=== PATIENT | female | born 1980 | race Caucasian/White ===

== ENCOUNTER 2017-08-16 15:22 | Emergency (ER) | payer MEDICAID ==
[~2017-08-16] VITALS: Ht 160 cm; Wt 63.5 kg
[~2017-08-16 15:22] MED LIST: AUGMENTIN 875875 MG; PREDNISONE 20 M20 M1 PO; PRILOSEC20 MG PO; SKELAXIN 800 M800 M1 PO; VENTOLIN HFA 1818 GM INH; ZANTAC 150MG T150 MG PO
[2017-08-16] MEDS ORDERED: CELEXA10 MG PO (15:44)
[2017-08-16 16:14] LABS: URINE BILIRUBIN NEGATIVE (Negative); URINE BLOOD NEGATIVE (Negative); URINE CLARITY CLEAR; URINE COLOR YELLOW; URINE GLUCOSE-RANDOM NEGATIVE (Negative); URINE KETONES NEGATIVE (Negative); URINE LEUKOCYTES-REFLEX TRACE (Negative); URINE PROTEIN NEGATIVE (Negative); URINE SPECIFIC GRAVITY 1.025 (1.005-1.030); URINE UROBILINOGEN 0.2 E.U./dl (0.2-1.0)
[2017-08-16 16:15] LABS: URINE NITRITE-REFLEX POSITIVE (Negative)
[2017-08-16 16:24] LABS: SQUAMOUS >10 Many /LPF (0-3)
[2017-08-16 16:25] LABS: MUCUS >6 Heavy strn/LPF (None Seen); URINE WBC-REFLEX 6-15 Few /HPF (0-5); WBC CLUMPS Few (None Seen)
[2017-08-16 16:26] LABS: CASTS None Seen /LPF (None Seen); CRYSTALS None Seen /LPF (None Seen); URINE RBC 0-2 Rare /HPF (0-2)
[2017-08-16 16:51] LABS: ABSOLUTE EOSINOPHILS 0.3 thou/uL (0.0-0.7); ABSOLUTE LYMPHOCYTES 1.6 thou/uL (0.8-5.3); ABSOLUTE MONOCYTES 0.9 thou/uL (0.0-1.2); ABSOLUTE NEUTROPHILS 9.9 thou/uL (1.6-8.1); BASOPHILS 0.3 %; EOSINOPHILS 2.6 %; HEMATOCRIT 40.9 % (37.0-47.0); HEMOGLOBIN 13.8 gm/dL (12.0-15.0); LYMPHOCYTES 12.7 %; MCH 30.3 pg (26.0-34.0); MCHC 33.7 g/dL (28.0-37.0); MCV 90.1 fL (80.0-100.0); MONOCYTES 7.4 %; MPV 8.4 fl. (7.2-11.1); NUCLEATED RBCS 0 /100WBC; PLATELET COUNT* 304 thou/uL (150-400); RBC 4.54 mil/uL (4.20-5.00); RDW-CV 13.1 % (10.5-14.5); WBC 12.8 thou/uL (4.0-11.0)
[2017-08-16 16:55] LABS: ANION GAP 9 mmol/L (7-16); BUN 11 mg/dL (7-18); CALCIUM 9.2 mg/dL (8.5-10.1); CHLORIDE 99 mmol/L (98-107); CO2 29 mmol/L (21-32); CREATININE 1.2 mg/dL (0.6-1.3); GLUCOSE 95 mg/dL (70-99); POTASSIUM 3.7 mmol/L (3.5-5.1); SODIUM 137 mmol/L (136-145)
[2017-08-16 17:04] LABS: ALBUMIN 3.7 g/dL (3.4-5.0); ALKALINE PHOSPHATASE 149 U/L (46-116); LIPASE 98 U/L (73-393); SGOT 13 U/L (15-37); SGPT 25 U/L (30-65); TOTAL BILIRUBIN 0.5 mg/dL (<0.1-1.0); TOTAL PROTEIN 8.1 g/dL (6.4-8.2); TROPONIN-I LEVEL <0.06 ng/mL (<0.06)
[2017-08-16] MEDS ORDERED: KEFLEX500 M1 PO (18:28)
[2017-08-16] MEDS ORDERED: ZOFRAN ODT4 MG PO (18:28)
[2017-08-16] MEDS ORDERED: NORCO 5-325 TA1 EACH PO (18:28)
[2017-08-16 18:43] VITALS: BP 105/73
--- NOTE | 2017-08-17 13:00 | EKG ---
[place] [address] ELECTROCARDIOGRAM REPORT Name: JOSEKELLIJIM STARKEYE Room: [facility]#: [id number] Admission: 08/16/17 Attend Phys: Discharge: 08/16/17 Date of : 76 Report #: [id number] THIS REPORT FOR: //name// [facility] ED Test Date: 2017-08-16 Test Time: 16:57:09 Pat Name: KELLI GARCIA Department: Room: Gender: F Pattern Puncher: Matias BUTLER : 1980 Requested By: Noe Yousif Order Number: [id number] MD: Raheem Jaimes Measurements Intervals [place] Rate: 84 P: 33 NM: 145 QRS: 49 QRSD: 91 T: 39 QT: 359 QTc: 425 Interpretive Statements Sinus rhythm RSR' in V1 or V2, right VCD or RVH Compared to ECG 01/01/2015 02:35:37 early repolarization no longer noted Electronically Signed On 08-17-2017 13:00:25 CREW LEADER/CONTROL ROOM OPERATOR by Raheem Jaimes [email or web address] <ELECTRONICALLY SIGNED> By: Raheem Jaimes MD, [facility] 08/17/17 1300 [id number] 165 Raheem Jaimes MD, [facility] /EPI
== END 2017-08-16 18:45 | disposition home or self-care (01) ==
LOC: M.ERS 15:22
PROVIDERS: Emergency Medicine Emergency Medical Services
DX: N12 Tubulo-interstitial nephritis, not specified as acute or chronic (principal); E78.5 Hyperlipidemia, unspecified; K21.9 Gastro-esophageal reflux disease without esophagitis; F41.9 Anxiety disorder, unspecified; F17.210 Nicotine dependence, cigarettes, uncomplicated; Z90.710 Acquired absence of both cervix and uterus; Z90.49 Acquired absence of other specified parts of digestive tract; Z96.0 Presence of urogenital implants; Z98.890 Other specified postprocedural states; Z88.2 Allergy status to sulfonamides; Z88.8 Allergy status to other drugs, medicaments and biological substances

== ENCOUNTER 2018-06-19 15:28 | Inpatient (IN) | payer OTHER ==
[~2018-06-19] VITALS: Ht 160 cm; Wt 68.0 kg
[~2018-06-19 15:28] MED LIST changes: +CELEXA10 MG PO; +KEFLEX500 M1 PO; +NORCO 5-325 TA1 EACH PO; +ZOFRAN ODT4 MG PO
[2018-06-19 15:37] VITALS: BP 129/92
[2018-06-19] MEDS ORDERED: DEXILANT30 MG PO (15:39)
[2018-06-19] MEDS ORDERED: CYMBALTA20 MG PO (15:40)
[2018-06-19 16:02] LABS: ABSOLUTE BASOPHILS 0.1 thou/uL (0.0-0.2); ABSOLUTE EOSINOPHILS 0.8 thou/uL (0.0-0.7); ABSOLUTE LYMPHOCYTES 1.9 thou/uL (0.8-5.3); ABSOLUTE MONOCYTES 0.8 thou/uL (0.0-1.2); ABSOLUTE NEUTROPHILS 11.5 thou/uL (1.6-8.1); BASOPHILS 0.5 %; EOSINOPHILS 5.6 %; HEMATOCRIT 43.9 % (37.0-47.0); HEMOGLOBIN 14.6 gm/dL (12.0-15.0); LYMPHOCYTES 12.9 %; MCH 30.5 pg (26.0-34.0); MCHC 33.3 g/dL (28.0-37.0); MCV 91.7 fL (80.0-100.0); MONOCYTES 5.1 %; MPV 7.9 fl. (7.2-11.1); NUCLEATED RBCS 0 /100WBC; PLATELET COUNT* 352 thou/uL (150-400); POLYS 75.9 %; RBC 4.79 mil/uL (4.20-5.00); RDW-CV 12.7 % (10.5-14.5); WBC 15.1 thou/uL (4.0-11.0)
[2018-06-19 16:10] LABS: CALCIUM 9.2 mg/dL (8.5-10.1); CREATININE 0.9 mg/dL (0.6-1.3); POTASSIUM 3.4 mmol/L (3.5-5.1)
[2018-06-19 16:15] LABS: ALBUMIN 3.9 g/dL (3.4-5.0); TOTAL BILIRUBIN 0.2 mg/dL (<0.1-1.0); TOTAL PROTEIN 7.8 g/dL (6.4-8.2)
[2018-06-19 17:39] LABS: URINE BILIRUBIN NEGATIVE (Negative); URINE BLOOD NEGATIVE (Negative); URINE CLARITY CLEAR; URINE COLOR YELLOW; URINE GLUCOSE-RANDOM NEGATIVE (Negative); URINE KETONES NEGATIVE (Negative); URINE LEUKOCYTES-REFLEX NEGATIVE (Negative); URINE NITRITE-REFLEX NEGATIVE (Negative); URINE PROTEIN NEGATIVE (Negative); URINE UROBILINOGEN 0.2 E.U./dl (0.2-1.0)
[2018-06-19 18:12] VITALS: BP 129/92
[2018-06-19 18:17] VITALS: BP 121/78
[2018-06-19] MEDS ORDERED: AMOXICILLIN 50500 MG PO (19:36)
--- NOTE | 2018-06-19 19:51 | NUR ---
PATIENT ARRIVED TO UNIT AT 1800. ALERT AND ORIENTED X4. UP AD ALESSANDRO IN ROOM. IV IS PATENT AND INFUSING. IN TEARS UPON ARRIVAL TO UNIT IN 03/19 PAIN. PHYSICIAN CONTACTED AND ORDERS HAVE BEEN RECIEVED AND ADMINISTERED. NAUSEA IS BEING MANAGED WITH IV NAUSEA MEDICATION. VSS ON ROOM AIR. PATIENT HAS BEEN ORIENTED TO ROOM. CALL LIGHT IS WITHIN REACH. NURSING WILL CONTINUE TO MONITOR.
[2018-06-19 20:30] VITALS: BP 113/76
[2018-06-20 04:00] VITALS: BP 102/61
--- NOTE | 2018-06-20 05:25 | NUR ---
Patient has been saying she's having difficulty emptying her bladder. At 2100 she had 284 mls post void per bladder scan. Dr Hinson ordered Flomax and it was started last evening. This am she voided 300 mls and post void residual per bladder scan was 210 mls. Will continue to monitor.
--- NOTE | 2018-06-20 07:02 | NUR ---
Oriented x 4 but she's been drowsy secondary to pain meds and ambien at bedtime. I did have to start her on O2 at 2L n/c because her O2 sat was 88-90% on roomair at 0100. She's been staggering when walking to the bathroom so we've been walking with her. She has had IV dilaudid x 3 this shift. She has slept well.
[2018-06-20 08:00] VITALS: BP 97/66
[2018-06-20 10:43] LABS: CHOLESTEROL 191 mg/dL (<200); HDL CHOLESTEROL 51 mg/dL (>40); LDL CHOLESTEROL 130 mg/dL (<100); SERUM ASSESSMENT Clear; TC:HDL 3.7 Ratio (Not establshd); TRIGLYCERIDE 52 mg/dL (<150); VLDL 10 mg/dL (<40)
[2018-06-20 16:23] VITALS: BP 105/63
--- NOTE | 2018-06-20 17:38 | NUR ---
PATIENT REMAINED ALERT AND ORIENTED X'S 4. VITAL SIGNS AND SPO2 STABLE. IV CLEAN, FLUIDS INFUSING. PAIN CONTROLLED WITH PAIN MEDS. PATIENT HAD BOUTS OF NAUSEA AND VOMITING. ZOFRAN WAS NOT WORKING WELL ENOUGH, GOT ORDER FOR PHENERGREN, NAUSEA AND VOMITING HAVE SUBSIDED. COMPLETED HOURLY ROUNDING. CALL LIGHT WITHIN REACH. WILL CONTINUE TO MONITOR.
[2018-06-20 21:56] VITALS: BP 96/47
[2018-06-21 04:19] LABS: HEMATOCRIT 33.1 % (37.0-47.0); MCH 31.6 pg (26.0-34.0); MCHC 34.4 g/dL (28.0-37.0); MPV 8.3 fl. (7.2-11.1); RBC 3.59 mil/uL (4.20-5.00); RDW-CV 12.7 % (10.5-14.5); WBC 7.1 thou/uL (4.0-11.0)
[2018-06-21 04:25] LABS: HEMOGLOBIN 11.4 gm/dL (12.0-15.0)
[2018-06-21 04:40] LABS: ALBUMIN 2.7 g/dL (3.4-5.0); CALCIUM 7.9 mg/dL (8.5-10.1); CREATININE 0.8 mg/dL (0.6-1.3); MAGNESIUM 1.7 mg/dL (1.8-2.4); POTASSIUM 3.8 mmol/L (3.5-5.1); TOTAL BILIRUBIN 0.4 mg/dL (<0.1-1.0); TOTAL PROTEIN 5.4 g/dL (6.4-8.2)
--- NOTE | 2018-06-21 07:33 | NUR ---
INITAL ASSESMENT COMPLETED AT 2100. T RESTING QUIETLY IN BED WATCHING TELEVISION AT THAT TIME. PT RECIEVED IV DILAUDED FOR ABDOMINAL PAIN TWICE DURING SHIFT. FIRST DOSE GIVEN AT 2145. SECOND DOSE AT 0315. NO NAUSEAA, VOMITING OR DIARRHEA DURING NIGHT. PT RECIEVING IV FUIDS AND IV ANTIBIOTICS FOR TREATMENT OF PROTOCOLITIS. PT NPO AFTER MIDIGHT FOR POSSIBLE GI PROCEDURE TODAY. NOTHING SCHEDULED PER NURSING [employer]RE[employer] SALES ASSOCIATE. NO ORDERS ENTERED FOR EGD OR COLONOSCOPY. PT REQUESTED REGULAR DIET AT START OF SHIFT. DISCUSSED WITH DR BERKOWITZ WHO DECLINED TO ADVANCE DIET. VITAL SIGNS WITHIN NORMAL LIMITS DURING NIGHT. NO ACUTE CHANGES.
[2018-06-21 08:10] VITALS: BP 97/62
[2018-06-21 16:00] VITALS: BP 104/70
--- NOTE | 2018-06-21 18:58 | NUR ---
PT IS ALERT AND ORIENTED X 4. ABDOMINAL PAIN MANAGED WITH IV AND PO PAIN MEDICATIONS. IVF INFUSING @ 100 MLS/HR. RECEIVED MINERAL OIL ENEMA @ 1045. ADDITIONAL ENEMA GIVEN @ 1145 ALONG WITH SENNA TABS AND ADDITIONAL FLUIDS ENCOURAGED. SMALL BOWEL MOVEMENT NOTED FOR RESULTS. PT ABLE TO TOLERATE REGULAR DIET. DENIED NAUSEA. VS STABLE. HOURLY ROUNDS MAINTAINED. WILL USE CALL LIGHT FOR ASSISTANCE.
[2018-06-21 22:00] VITALS: BP 99/63
[2018-06-22 00:48] VITALS: BP 89/55
[2018-06-22 04:23] VITALS: BP 93/50
[2018-06-22 04:59] LABS: HEMATOCRIT 31.9 % (37.0-47.0); HEMOGLOBIN 10.9 gm/dL (12.0-15.0); MCH 31.5 pg (26.0-34.0); MCV 92.6 fL (80.0-100.0); MPV 8.6 fl. (7.2-11.1); RBC 3.45 mil/uL (4.20-5.00); WBC 5.8 thou/uL (4.0-11.0)
[2018-06-22 05:13] LABS: ALBUMIN 2.5 g/dL (3.4-5.0); CALCIUM 7.9 mg/dL (8.5-10.1); CREATININE 0.8 mg/dL (0.6-1.3); POTASSIUM 3.2 mmol/L (3.5-5.1); TOTAL BILIRUBIN 0.1 mg/dL (<0.1-1.0); TOTAL PROTEIN 5.4 g/dL (6.4-8.2)
--- NOTE | 2018-06-22 05:18 | NUR ---
ALERT AND ORIENTED X4. UP AD ALESSANDRO TO BATHROOM. CONTINUES ON IV ANTIBIODICS. PAIN MEDICATION GIVEN X1 FOR ABDOMINAL PAIN. NO C/O N/V. IVF INFUSING WITHOUT DIFFICULTY. CALL LIGHT WITHIN REACH. PROGRESSING TOWARD DISCHARGE GOAL.
[2018-06-22 08:05] VITALS: BP 109/62
[2018-06-22] MEDS ORDERED: MIRALAX17 GM PO (08:30)
[2018-06-22] MEDS ORDERED: CIPRO500 MG PO (08:30)
[2018-06-22] MEDS ORDERED: FLAGYL500 M1 PO (08:30)
[2018-06-22] MEDS ORDERED: TRAMADOL 50 MG50 MG PO (08:30)
[2018-06-22] MEDS ORDERED: TRANSDERM-SCOP1 EACH TRANSDERM (08:30)
[2018-06-22 10:38] VITALS: BP 109/62
[2018-06-22 10:50] VITALS: BP 109/62
[2018-06-22 11:32] VITALS: BP 109/62
--- NOTE | 2018-06-22 11:33 | NUR ---
PT ALERT AND ORIENTED X 4. VS STABLE. IVF INFUSING. PT INDICATED MINIMAL PAIN. DENIES NAUSEA. ABLE TO TOLERATE REGULAR DIET. VS STABLE. PER GI, DR. FLOREZ, OKAY TO DISCHARGE. IV REMOVED. PT GIVEN PRESCRIPTIONS AND DISCHARGED INSTRUCTIONS. PT LEFT UNIT ESCORTED BY NURSING STAFF PER AMBULATION WITH PERSONAL BELONGINGS TO LEAVE @ 1107 WITH FAMILY PER PRIVATE CAR.
[2018-06-24 09:09] LABS: HEPATITIS B SURFACE AG Negative (Negative)
== END 2018-06-22 11:42 | disposition home or self-care (01) | DRG 372 ==
LOC: M.ERS 15:28 → M.ORTHSURG 17:20 → M.TBA-ER 17:20 → M.ORTHSURG 18:04
PROVIDERS: Internal Medicine; Physician Assistant; ADMIT Internal Medicine
DX: A04.9 Bacterial intestinal infection, unspecified (principal); I77.4 Celiac artery compression syndrome; R65.10 Systemic inflammatory response syndrome (SIRS) of non-infectious origin without acute organ dysfunction; E78.5 Hyperlipidemia, unspecified; K21.9 Gastro-esophageal reflux disease without esophagitis; F41.9 Anxiety disorder, unspecified; F17.210 Nicotine dependence, cigarettes, uncomplicated; K59.00 Constipation, unspecified; G89.29 Other chronic pain; R10.9 Unspecified abdominal pain; Z90.710 Acquired absence of both cervix and uterus; Z90.49 Acquired absence of other specified parts of digestive tract; Z88.2 Allergy status to sulfonamides; Z88.8 Allergy status to other drugs, medicaments and biological substances

== ENCOUNTER 2018-06-26 01:33 | Emergency (ER) | payer OTHER ==
[~2018-06-26] VITALS: Ht 160 cm; Wt 68.0 kg
[~2018-06-26 01:33] MED LIST changes: +AMOXICILLIN 50500 MG PO; +CIPRO500 MG PO; +CYMBALTA20 MG PO; +DEXILANT30 MG PO; +FLAGYL500 M1 PO; +MIRALAX17 GM PO; +TRAMADOL 50 MG50 MG PO; +TRANSDERM-SCOP1 EACH TRANSDERM
[2018-06-26 02:21] LABS: ABSOLUTE BASOPHILS 0.1 thou/uL (0.0-0.2); ABSOLUTE EOSINOPHILS 0.6 thou/uL (0.0-0.7); ABSOLUTE MONOCYTES 0.6 thou/uL (0.0-1.2); ABSOLUTE NEUTROPHILS 5.6 thou/uL (1.6-8.1); BASOPHILS 0.6 %; EOSINOPHILS 7.1 %; HEMATOCRIT 40.9 % (37.0-47.0); HEMOGLOBIN 13.7 gm/dL (12.0-15.0); LYMPHOCYTES 22.7 %; MCHC 33.5 g/dL (28.0-37.0); MCV 92.4 fL (80.0-100.0); MONOCYTES 6.3 %; MPV 8.1 fl. (7.2-11.1); NUCLEATED RBCS 0 /100WBC; PLATELET COUNT* 318 thou/uL (150-400); POLYS 63.3 %; RBC 4.43 mil/uL (4.20-5.00); RDW-CV 13.2 % (10.5-14.5); WBC 8.8 thou/uL (4.0-11.0)
[2018-06-26 02:29] LABS: CALCIUM 8.6 mg/dL (8.5-10.1); CREATININE 0.9 mg/dL (0.6-1.3); POTASSIUM 3.5 mmol/L (3.5-5.1)
[2018-06-26 02:33] LABS: ALBUMIN 3.4 g/dL (3.4-5.0); TOTAL BILIRUBIN 0.3 mg/dL (<0.1-1.0); TOTAL PROTEIN 6.9 g/dL (6.4-8.2)
[2018-06-26 04:35] LABS: URINE BILIRUBIN NEGATIVE (Negative); URINE BLOOD NEGATIVE (Negative); URINE CLARITY CLEAR; URINE COLOR YELLOW; URINE GLUCOSE-RANDOM NEGATIVE (Negative); URINE KETONES NEGATIVE (Negative); URINE LEUKOCYTES-REFLEX NEGATIVE (Negative); URINE NITRITE-REFLEX NEGATIVE (Negative); URINE PROTEIN NEGATIVE (Negative); URINE SPECIFIC GRAVITY <= 1.005 (1.005-1.030); URINE UROBILINOGEN 0.2 E.U./dl (0.2-1.0)
[2018-06-26 04:45] LABS: AMP/METHAMP Negative (Negative); BARBITURATES Negative (Negative); BENZODIAZEPINES Negative (Negative); COCAINE Negative (Negative); METHADONE Negative (Negative); OPIATES Negative (Negative); PCP Negative (Negative); THC Negative (Negative)
[2018-06-26] MEDS ORDERED: REGLAN 10 MG TA10 MG PO (06:19)
[2018-06-26 06:25] VITALS: BP 104/70
== END 2018-06-26 06:25 | disposition home or self-care (01) ==
LOC: M.ERS 01:33
PROVIDERS: Emergency Medicine
DX: K59.00 Constipation, unspecified (principal); R11.2 Nausea with vomiting, unspecified; E78.5 Hyperlipidemia, unspecified; K21.9 Gastro-esophageal reflux disease without esophagitis; F41.9 Anxiety disorder, unspecified; F17.210 Nicotine dependence, cigarettes, uncomplicated; Z90.49 Acquired absence of other specified parts of digestive tract; Z88.2 Allergy status to sulfonamides; Z88.8 Allergy status to other drugs, medicaments and biological substances; Z90.710 Acquired absence of both cervix and uterus; Z79.899 Other long term (current) drug therapy

== ENCOUNTER 2020-12-23 10:04 | Emergency (ER) | payer BC ==
[~2020-12-23] VITALS: Ht 160 cm; Wt 79.4 kg
[~2020-12-23 10:04] MED LIST changes: +REGLAN 10 MG TA10 MG PO
[2020-12-23] MEDS ORDERED: BENTYL 10 MG CA10 M1 PO (10:32)
[2020-12-23] MEDS ORDERED: GABAPENTIN600 M1 PO (10:32)
[2020-12-23] MEDS ORDERED: CLARITIN10 M1 PO (10:32)
[2020-12-23] MEDS ORDERED: URSODIOL250 MG PO (10:32)
[2020-12-23] MEDS ORDERED: CELEXA 10 MG TA10 M1 PO (10:33)
[2020-12-23] MEDS ORDERED: PAMELOR10 MG PO (10:33)
[2020-12-23 11:11] LABS: ABSOLUTE BASOPHILS 0.1 thou/uL (0.0-0.2); ABSOLUTE EOSINOPHILS 0.1 thou/uL (0.0-0.7); ABSOLUTE LYMPHOCYTES 1.5 thou/uL (0.8-5.3); ABSOLUTE MONOCYTES 0.4 thou/uL (0.0-1.2); ABSOLUTE NEUTROPHILS 7.9 thou/uL (1.6-8.1); BASOPHILS 0.5 %; EOSINOPHILS 0.6 %; HEMATOCRIT 43.4 % (37.0-47.0); HEMOGLOBIN 15.2 gm/dL (12.0-15.0); LYMPHOCYTES 14.7 %; MCH 32.1 pg (26.0-34.0); MCV 91.6 fL (80.0-100.0); MONOCYTES 3.7 %; NUCLEATED RBCS 0 /100WBC; PLATELET COUNT* 336 thou/uL (150-400); POLYS 80.5 %; RBC 4.74 mil/uL (4.20-5.00); RDW-CV 12.7 % (10.5-14.5); WBC 9.9 thou/uL (4.0-11.0)
[2020-12-23 11:20] LABS: CALCIUM 9.4 mg/dL (8.5-10.1); CREATININE 1.1 mg/dL (0.6-1.3); POTASSIUM 4.1 mmol/L (3.5-5.1)
[2020-12-23 11:25] LABS: ALBUMIN 3.9 g/dL (3.4-5.0); TOTAL BILIRUBIN 0.4 mg/dL (<0.1-1.0)
[2020-12-23 11:52] LABS: URINE BLOOD NEGATIVE (Negative); URINE CLARITY CLEAR; URINE COLOR YELLOW; URINE GLUCOSE-RANDOM NEGATIVE (Negative); URINE LEUKOCYTES-REFLEX NEGATIVE (Negative); URINE NITRITE-REFLEX NEGATIVE (Negative); URINE PROTEIN TRACE (Negative); URINE SPECIFIC GRAVITY 1.025 (1.005-1.030); URINE UROBILINOGEN 0.2 E.U./dl (0.2-1.0)
[2020-12-23 11:53] LABS: URINE KETONES 3+ (Negative)
[2020-12-23 11:54] LABS: ICTOTEST (BILI CONFIRMATORY) Negative (Negative); URINE BILIRUBIN 2+ (Negative)
[2020-12-23] MEDS ORDERED: ONDANSETRON HCL4 M2 PO (13:38)
[2020-12-23] MEDS ORDERED: LOPERAMIDE 2 MG2 M1 PO (13:38)
[2020-12-23 14:44] VITALS: BP 122/58
== END 2020-12-23 14:46 | disposition home or self-care (01) ==
LOC: M.ERS 10:04
PROVIDERS: Physician Assistant
DX: R19.7 Diarrhea, unspecified (principal); R11.2 Nausea with vomiting, unspecified; R07.89 Other chest pain; R05 Cough; E78.5 Hyperlipidemia, unspecified; K21.9 Gastro-esophageal reflux disease without esophagitis; F17.210 Nicotine dependence, cigarettes, uncomplicated; Z90.710 Acquired absence of both cervix and uterus; Z98.890 Other specified postprocedural states; Z90.89 Acquired absence of other organs; Z88.2 Allergy status to sulfonamides

== ENCOUNTER → 2021-03-30 | Outpatient (CLI) | payer BC ==
[~2021-03-30] MED LIST changes: +BENTYL 10 MG CA10 M1 PO; +CELEXA 10 MG TA10 M1 PO; +CLARITIN10 M1 PO; +GABAPENTIN600 M1 PO; +LOPERAMIDE 2 MG2 M1 PO; +ONDANSETRON HCL4 M2 PO; +PAMELOR10 MG PO; +URSODIOL250 MG PO
== END ==
LOC: M.CT 03-29 09:00
PROVIDERS: ATTEND Internal Medicine Gastroenterology
DX: I77.4 Celiac artery compression syndrome (principal); K76.0 Fatty (change of) liver, not elsewhere classified; Z90.49 Acquired absence of other specified parts of digestive tract; Z90.722 Acquired absence of ovaries, bilateral